=== PATIENT | male | born 1960 | race Caucasian/White ===

== ENCOUNTER 2017-01-08 20:06 | Emergency (ER) | payer BC ==
[2017-01-08 20:16] VITALS: BP 146/97
--- NOTE | 2017-01-08 21:12 | UC ---
Complaint Male HPI - HPI Summary HPI Summary: right flank pain began 3 days ago while in [place]--just got off plane and came directly to urgent care--urine has been darker than usual--but has not noticed any farrukh blood - History of Current Complaint Hx Obtained From: Patient Onset/Duration: Sudden Onset, Lasting Days - 3, Still Present Timing: Constant Severity Initially: Moderate Severity Currently: Moderate Location: Flank - right Character: Colicy, Constant Pressure Aggravating Factor(s): Nothing Alleviating Factor(s): Meds Associated Signs And Symptoms: Positive: Back Pain, Nausea <Shahla Renner - Last Filed: 01/11/17 07:38> <Idania Ward - Last Filed: 01/11/17 07:48> - History of Current Complaint Chief Complaint: UCBackPain Stated Complaint: LOWER BACK PAIN Time Seen by Provider: 01/08/17 21:03 - Allergies/Home Medications Allergies/Adverse Reactions: Allergies Allergy/AdvReac Type Severity Reaction Status Date / Time No Known Allergies Allergy Verified 01/10/17 13:08 Home Medications: Home Medications Prochlorperazine TAB* [Compazine Tab*] 5 mg PO Q6H PRN 01/08/17 [History Confirmed 01/11/17] PMH/Surg Hx/FS Hx/Imm Hx Previously Healthy: Yes - Surgical History Surgical History: Yes Surgery Procedure, Year, and Place: t&a - Family History Known Family History: Positive: None Family History: no issues reported in family history - Social History Occupation: Employed Full-time Lives: With Family Alcohol Use: Occasionally Substance Use Type: None Smoking Status (MU): Never Smoked Tobacco <Shahla Renner - Last Filed: 01/11/17 07:38> Review of Systems Constitutional: Negative Skin: Negative Eyes: Negative ENT: Negative Respiratory: Negative Cardiovascular: Negative Gastrointestinal: Abdominal Pain - and right flank, Nausea Genitourinary: Negative Motor: Negative Neurovascular: Negative Musculoskeletal: Negative Neurological: Negative Psychological: Negative All Other Systems Reviewed And Are Negative: Yes <Shahla Renner - Last Filed: 01/11/17 07:38> Physical Exam Triage Information Reviewed: Yes Appearance: Well-Appearing, No Pain Distress, Well-Nourished Vital Signs: Initial Vital Signs Temp 99.7 F 01/08/17 20:09 Pulse 86 01/08/17 20:09 Resp 18 01/08/17 20:09 BP 146/97 01/08/17 20:09 Pulse Ox 99 01/08/17 20:09 Vital Signs Reviewed: Yes Eye Exam: Normal Eyes: Positive: Conjunctiva Clear ENT Exam: Normal ENT: Positive: Normal ENT inspection, Hearing grossly normal. Negative: Nasal congestion, Nasal drainage, Trismus, Muffled/hoarse voice Dental Exam: Normal Neck exam: Normal Neck: Positive: Supple, Nontender, No Lymphadenopathy Respiratory Exam: Normal Respiratory: Positive: Chest non-tender, Lungs clear, Normal breath sounds, No respiratory distress, No accessory muscle use Cardiovascular Exam: Normal Cardiovascular: Positive: RRR, No Murmur, Pulses Normal, Brisk Capillary Refill Abdominal Exam: Normal Abdomen Description: Positive: Nontender, No Organomegaly, Soft, CVA Tenderness (R). Negative: CVA Tenderness (L) Bowel Sounds: Positive: Present Musculoskeletal Exam: Normal Musculoskeletal: Positive: Strength Intact, ROM Intact, No Edema Neurological Exam: Normal Neurological: Positive: Alert, Muscle Tone Normal Psychological Exam: Normal Psychological: Positive: Normal Response To Family Skin Exam: Normal <Shahla Renner - Last Filed: 01/11/17 07:38> Vital Signs: Initial Vital Signs Temp 99.7 F 01/08/17 20:09 Pulse 86 01/08/17 20:09 Resp 18 01/08/17 20:09 BP 146/97 01/08/17 20:09 Pulse Ox 99 01/08/17 20:09 <Idania Ward - Last Filed: 01/11/17 07:48> Diagnostics - Radiology No standard instances Xray Interpretation: Positive (See Comments) Radiology Interpretation Completed By: Radiologist - 6 mm stone right ureter with mild hydronephrosis <Shahla Renner - Last Filed: 01/11/17 07:38> Complaint Male Course/Dx - Course Course Of Treatment: continue pain med, add flomax, follow with [facility] in [place] - Differential Dx/Diagnosis Differential Diagnosis/HQI/PQRI: Pyelonephritis, Ureteral Calculi, Urinary Tract Infection Provider Diagnoses: 6 mm Right renal Calculi, High nblood pressure without dx of hypertension <Shahla Renner - Last Filed: 01/11/17 07:38> Discharge <Shahla Renner - Last Filed: 01/11/17 07:38> <Idania Ward - Last Filed: 01/11/17 07:48> - Discharge Plan Condition: Stable Disposition: HOME Prescriptions: HYDROcodone/ACETAMIN 5-325 MG* [Sutton 5-325 TAB*] 1 tab PO Q4H PRN #20 tab MDD 4 PRN Reason: pain Patient Education Materials: Tamsulosin (By mouth), Renal Colic (ED) Referrals: Murali Betancur MD [Medical Doctor] - 1 Day Attestation Statement User Type: Provider - I was available for consult. This patient was seen by the JOE. The patient was not presented to, seen by, or examined by me. -Fatoumata <Idania Ward - Last Filed: 01/11/17 07:48>
--- NOTE | 2017-01-08 21:43 | RAD ---
CLINICAL HISTORY: Right renal colic COMPARISON: None TECHNIQUE: Multiple contiguous axial CT scans were obtained of the abdomen and pelvis, without intravenous contrast enhancement. Coronal and sagittal multiplanar reformations are submitted for review. Oral contrast was not administered. FINDINGS: The study is limited by the lack of intravenous contrast. This limits evaluation of the solid organs and vasculature. LUNG BASES: The lung bases are clear. LIVER: The liver is normal in shape, size, contour, and attenuation. BILE DUCTS: There is no intrahepatic or extrahepatic biliary dilatation. GALLBLADDER: The gallbladder is collapsed and is not well evaluated. PANCREAS: The pancreas is normal, without mass or ductal dilatation. SPLEEN: Normal in size and appearance. UPPER GI TRACT: Evaluation of the gastrointestinal tract is limited by incomplete gastric distention. The upper GI tract is unremarkable. SMALL BOWEL AND MESENTERY: The small bowel is normal in contour, course, and caliber. There is no obstruction or dilatation. COLON: The colon is normal in contour, course, caliber. There is no pericolonic inflammatory change. There is a tubular, vermiform, hollow viscus that is blind ending, and originates from the cecum, consistent with a normal appendix. There is no periappendiceal inflammatory change. ADRENALS: Normal bilaterally. KIDNEYS: There is a 0.6 cm calculus of the right UPJ. There is mild perinephric stranding and pelviectasis. BLADDER: The bladder is collapsed and is not well evaluated PELVIC ORGANS: The prostate gland is normal. The seminal vesicles are symmetric. AORTA: The aorta is normal. IVC: Unremarkable LYMPH NODES: There is no lymphadenopathy by size criteria. ABDOMINAL WALL: There are bilateral fat-containing hernias BONES AND SOFT TISSUES: Degenerative changes are noted OTHER: None IMPRESSION: 0.6 CM CALCULUS OF THE RIGHT UPJ WITH MILD HYDRONEPHROSIS.
[2017-01-08] MEDS ORDERED: HYDROcodone/ACETAMIN 5-325 MG* 1 TAB PO ONE (21:59)
[2017-01-08] MEDS ORDERED: Tamsulosin CAP* 0.4 MG PO ONE (22:01)
== END 2017-01-08 22:00 | disposition home or self-care (01) ==
LOC: UCEAST 20:06
DX: N13.2 Hydronephrosis with renal and ureteral calculous obstruction (principal); R03.0 Elevated blood-pressure reading, without diagnosis of hypertension; R11.0 Nausea
CPT/HCPCS: 74176; 81003; 99212; G0463

== ENCOUNTER 2017-01-09 15:15 | Day surgery (SDC) | payer BC ==
--- NOTE | 2017-01-09 15:04 | HP ---
CC: Dr. Lucia DATE OF ADMISSION: 01/09/2017. HISTORY OF PRESENT ILLNESS: Mr. Cruz is a 56-year-old, white male who is admitted with a right ureteral calculus for cystoscopy and placement of a right ureteral stent, possible right ureteroscopy. Mr. Cruz was in [place] four days ago when he had symptoms of right renal colic. The pain was very severe and the [facility] physician came to see him, diagnosed him with renal colic, gave him several shots for pain and pain pills, and recommended that as soon as he gets back home to follow for possible renal colic. The patient continued to have on and off mild pains. Last night the pain became severe and he went to the [facility] around 9:00 p.m. He did not have any fever or chills. He had a noncontrast CT of the abdomen and pelvis which showed a 6 mm calculus at the right ureteropelvic junction. There were no other abnormalities noted and no other calculi seen. He was given pain medication and referred to our office for further management. He has been having still some episodes of pain, but they have been less severe. He did not have any gross hematuria or voiding symptoms. PAST HISTORY: Completely negative. No past history of any renal diseases or calculi. No history of any voiding problems. He has nocturia only once. No day frequency. He reports having good urinary stream and no feeling of incomplete bladder emptying. PAST MEDICAL HISTORY AND SYSTEM REVIEW: He is in excellent health. MEDICATIONS: He is on no chronic medications. ALLERGIES: He denies any allergies to medications. FAMILY HISTORY: Negative for renal calculi, negative for prostate carcinoma. PHYSICAL EXAMINATION GENERAL: Moderately overweight, otherwise healthy-looking white male. VITAL SIGNS: Blood pressure 150/100 (anxious), pulse 80, temperature 97.8. LUNGS: Clear. HEART: Regular and rhythmic, no murmurs. ABDOMEN: Soft. There is mild right CVA tenderness. EXTERNAL GENITALIA: He is circumcised. No penile lesions. Normal testes. No hernias. RECTAL: Exam shows a nonenlarged and nonsuspicious prostate. LABORATORY DATA: Urine analysis shows +3 blood, negative otherwise. Renal ultrasound done in the office today showed mild right hydronephrosis. The calculus could not be seen. He had bilateral small ureteral jets. IMPRESSION: 6 mm right ureteral calculus with on and off episodes of right renal colic over the last four days. PLAN: Cystoscopy and placement of a right ureteral stent, in preparation for definitive treatment of the stone. If the calculus is noted to have dropped into the distal half of the ureter, then right ureteroscopy will be performed. I discussed the above plans in detail with the patient. All his questions were answered. [id number]/[facility]PS #: [id number] G[facility]
[2017-01-09] MEDS ORDERED: cefTRIAXone(*) 2 GM ADDV.VIAL IVPB ONE (15:37)
[2017-01-09] MEDS ORDERED: Buffered Lidocaine 0.9% SYRIN* 5 ML/SYR SYRINGE ONE (15:37)
[2017-01-09] MEDS ORDERED: Buffered Lidocaine 0.9% SYRIN* 5 ML/SYR SYRINGE INTRADERM ONE (16:14)
[2017-01-09] MEDS ORDERED: PROCHLORPERAZINE INJ 5 MG/ML 2 ML VIAL IV PRN (16:17)
[2017-01-09] MEDS ORDERED: Ondansetron INJ* 2 MG/ML VIAL IV PRN (16:17)
[2017-01-09] MEDS ORDERED: fentaNYL* 50 MCG/ML 2 ML VIAL (100 MCG VIAL) IV PRN (16:17)
[2017-01-09] MEDS ORDERED: Acetaminophen TAB* 325 MG PO PRN (16:17)
[2017-01-09] MEDS ORDERED: DiMENhydriNATE IV* 50 MG/ML VIAL IV PUSH PRN (16:17)
[2017-01-09] MEDS ORDERED: HYDROcodone/ACETAMIN 5-325 MG* 1 TAB PO PRN (16:17)
[2017-01-09] MEDS ORDERED: Iohexol 180 (CONTRAST) 10 ML SDV IV ONE (16:36)
[2017-01-09] MEDS ORDERED: fentaNYL* 50 MCG/ML 2 ML VIAL (100 MCG VIAL) ONE (17:03)
[2017-01-09] MEDS ORDERED: Midazolam* 1 MG/ML 5 ML VIAL (5 MG) ONE (17:03)
[2017-01-09] MEDS ORDERED: Lidocaine 2% PF * 5 ML VIAL ONE (17:46)
[2017-01-09] MEDS ORDERED: Propofol* 10 MG/ML 20 ML BTL IV PUSH ONE (17:46)
[2017-01-09] MEDS ORDERED: Dexamethasone IV* 4 MG/ML 1 ML (4 MG) ONE (17:46)
[2017-01-09] MEDS ORDERED: Ondansetron INJ* 2 MG/ML VIAL ONE (17:46)
[2017-01-09] MEDS ORDERED: Famotidine IV* 10 MG/ML 2 ML (20 mg) ONE (17:46)
[2017-01-09] MEDS ORDERED: Ketorolac INJ* 30 MG/ML 1 ML VIAL ONE (17:46)
--- NOTE | 2017-01-09 18:03 | RAD ---
INDICATION: Cystogram with stent insertion COMPARISONS: CT dated January 08, 2017 TECHNIQUE: Fluoroscopy was provided for a retrograde pyelogram and stent placement. Total fluoroscopy time is: 12 seconds FINDINGS: Spot images demonstrate a ureteral stent IMPRESSION: FLUOROSCOPY WAS PROVIDED FOR A RETROGRADE PYELOGRAM AND STENT PLACEMENT CPT II Codes: 6045F
[2017-01-09 19:49] VITALS: BP 137/81
--- NOTE | 2017-01-09 20:14 | RAD ---
HISTORY: Renal calculi, postop COMPARISONS: CT dated January 08, 2017 VIEWS: Frontal views of the abdomen. FINDINGS: BOWEL: There is a nonspecific bowel gas pattern, with nondilated small bowel gas noted. CALCULI: There is a calculus overlying the right hemiabdomen corresponding to the UPJ stone noted on the previous examination. A right ureteral stent is noted. This does not lie along the expected course of the ureter and may be within accessory/duplicated collecting system. BONES AND SOFT TISSUES: Mild degenerative changes are noted. OTHER FINDINGS: The lung bases are clear. There is no subphrenic gas. IMPRESSION: AGAIN NOTED IS A RIGHT SIDED FACTORS CORRESPONDING TO THE UPJ STONE NOTED ON THE PREVIOUS EXAMINATION. THE URETERAL STENT DOES NOT LIE ALONG THE EXPECTED COURSE OF THE URETER, BASED ON THE POSITION OF THE CALCULUS, AND MAY BE WITHIN A DUPLICATED RENAL COLLECTING SYSTEM. PRELIMINARY FINDINGS WERE DISCUSSED WITH DR. BANKS AT APPROXIMATELY 8:11 PM ON JANUARY 09, 2017.
--- NOTE | 2017-01-10 14:01 | OP ---
CC: Dr. Lucia* DATE OF OPERATION: 01/09/17 - [facility] DATE OF : 64 SURGEON: Murali Betancur MD ANESTHESIOLOGIST: Kandis Edmonds MD ANESTHESIA: Spinal. PRE-OP DIAGNOSIS: Proximal right ureteral calculus. POST-OP DIAGNOSIS: Proximal right ureteral calculus. OPERATIVE PROCEDURE: 1. Cystoscopy. 2. Right retrograde pyelography and placement of right ureteral stent (6-New Zealander ). INDICATIONS: Mr. Cruz is a 56-year-old white male, who has been having recurrent episodes of right renal colic for the last 4 or [address] of the abdomen and pelvis done yesterday showed 6-mm calculus at the right ureteropelvic junction. Because of the above history and the recurrent episodes of pain, the above procedure was advised and accepted. PATHOLOGY AT CYSTOSCOPY: The penile and bulbar urethrae looked normal. The prostatic urethra measured about 2.5 cm in length and there was moderate obstruction by a prominent median lobe and an elevated bladder neck. Examination of the bladder showed prominence of the submucosal vessels in the area of the bladder neck. The ureteral orifices looked normal. A single orifice was noted bilaterally. The bladder wall looked normal and there were no suspicious bladder lesions seen. At fluoroscopy, a faint calcification consistent with a 6-mm calculus was noted at the ureteropelvic junction. DESCRIPTION OF PROCEDURE: After successful spinal anesthesia, the patient was placed in the lithotomy position and was prepped and draped in the usual manner. Cystoscopy was performed. The bladder was inspected and above findings were noted. A flexible-tip guidewire was then introduced into the right orifice and positioned in the area of the renal pelvis. Retrograde pyelography was then performed. There was no dilatation of the collecting system. A size 6-[place] Ze[place]ander stent was then placed with the proximal end coiling in the collecting system and the distal end coiling inside the bladder. There was good drainage of contrast from the kidney and no extravasation. The patient tolerated the procedure well and left the operating room in good condition. The plan is to obtain a KUB before the discharge. If the calculus is confirmed to be radiopaque, the patient will be scheduled for shock wave lithotripsy at a later date. [id number]/[facility] #: [id number] [facility]
== END 2017-01-09 19:30 | disposition home or self-care (01) ==
LOC: OR 15:15
PROVIDERS: ATTEND Urology
DX: N20.0 Calculus of kidney (principal); Z68.35 Body mass index [BMI] 35.0-35.9, adult; N40.1 Benign prostatic hyperplasia with lower urinary tract symptoms
CPT/HCPCS: 36415; 74000; 74420; 86803; C1876; J0696; J1100; J1885; J2250; J2405; J2704; J3010

== ENCOUNTER 2017-01-11 07:24 | Day surgery (SDC) | payer BC ==
--- NOTE | 2017-01-10 19:20 | HP ---
HISTORY AND PHYSICAL: DATE OF PLANNED ADMISSION AND SURGERY: 01/11/17 HISTORY OF PRESENT ILLNESS: Mr. Cruz is a 56-year-old white male who is admitted with a right ureteral calculus, status post placement of right ureteral stent for cystoscopy and repositioning of right ureteral stent. Please refer to my history and physical for the patient's admission dated . The patient had placement of a right ureteral stent for a 6-mm calculus at the right ureteropelvic junction on 01/09/17. After placement of the ureteral stent , a KUB was done in preparation for definitive treatment of the stone. The KUB showed that the stent is in good position; however, a 6- to 7-mm calcification consistent with the stone seen on the CT scan was noted superior and medial to the stent indicating that the patient has a duplicated collecting system with the calculus located at the ureteropelvic junction of the upper pole moiety and the stent placed in the lower pole moiety. This duplication was not noted on the CT or at at the time of the fluoroscopy. The calculus was not also clearly seen at the time of the fluoroscopy and after placement of the stent. Following the placement of the stent, the patient has been pain-free. Ultrasound was done in the office showed a duplicated system, but did not show the stone. KUB again showed the same finding of the KUB done postoperatively. Because of the size of the stone and its location and likelihood that the patient will have another episode of renal colic, the patient is admitted for cystoscopy, right ureteral stent exchange, and repositioning of the stent in the upper pole moiety. This will be done in preparation for shock wave lithotripsy as definitive treatment of the stone. There has not been any change in the patient's history or physical since his recent admission. [id number]/[facility] #: [id number] [facility]
[~2017-01-11 07:24] MED LIST: Dexamethasone IV* 4 MG/ML 1 ML (4 MG) IV SLOW PU ONE; Famotidine IV* 10 MG/ML 2 ML (20 mg) IV ONE
[2017-01-11] MEDS ORDERED: Famotidine IV* 10 MG/ML 2 ML (20 mg) ONE (07:25)
[2017-01-11] MEDS ORDERED: cefTRIAXone(*) 2 GM ADDV.VIAL IVPB ONE (07:26)
[2017-01-11] MEDS ORDERED: Buffered Lidocaine 0.9% SYRIN* 5 ML/SYR SYRINGE ONE (07:26)
[2017-01-11] MEDS ORDERED: Dexamethasone IV* 4 MG/ML 1 ML (4 MG) ONE (07:26)
[2017-01-11] MEDS: Buffered Lidocaine 0.9% SYRIN* 5 ML/SYR SYRINGE INTRADERM ONE ×2 (07:49→07:51)
[2017-01-11] MEDS ORDERED: Iohexol 180 (CONTRAST) 10 ML SDV IV ONE (08:24)
[2017-01-11] MEDS ORDERED: fentaNYL* 50 MCG/ML 2 ML VIAL (100 MCG VIAL) ONE (08:31)
[2017-01-11] MEDS ORDERED: Chloroprocaine 2%* 20 ML VIAL ONE (08:31)
[2017-01-11] MEDS ORDERED: Midazolam* 1 MG/ML 2 ML VIAL (2 MG) ONE ×2 (08:31)
[2017-01-11] MEDS ORDERED: Propofol* 10 MG/ML 20 ML BTL IV PUSH ONE (08:34)
[2017-01-11] MEDS ORDERED: Ondansetron INJ* 2 MG/ML VIAL IV PRN (10:06)
[2017-01-11] MEDS ORDERED: Ketorolac INJ* 30 MG/ML 1 ML VIAL IV PRN (10:06)
[2017-01-11] MEDS ORDERED: fentaNYL* 50 MCG/ML 2 ML VIAL (100 MCG VIAL) IV PRN (10:06)
--- NOTE | 2017-01-11 10:32 | RAD ---
INDICATION: Right ureteral stent exchange. COMPARISON: Comparison is made with a prior KUB study from January 10, 2017. TECHNIQUE: 18 seconds of intermittent fluoroscopic guidance were provided and 9 spot films of the abdomen were centered on the right side. FINDINGS: There is partial opacification of the right renal collecting system. Subsequently there is placement of a double-J stent catheter on the right side which demonstrates normal course. The catheter appears to project adjacent to the calculus noted previously to be at the right ureteropelvic junction. IMPRESSION: INTRAOPERATIVE CONTROL FILMS. CPT II Codes: 6045F
[2017-01-11 11:24] VITALS: BP 145/98
--- NOTE | 2017-01-12 09:14 | OP ---
CC: Dr. Lucia* DATE OF OPERATION: 01/11/17 - [facility] DATE OF : 64 SURGEON: Murali Betancur MD ANESTHESIOLOGIST: Dr. Martin Patterosn. ANESTHESIA: Spinal. PRE-OP DIAGNOSES: 1. Partial duplication of right collecting system. 2. A 7 mm calculus at the right ureteropelvic junction of upper pole moiety. 3. Status post placement of ureteral stent in the lower pole moiety. POST-OP DIAGNOSES: 1. Partial duplication of right collecting system. 2. A 7 mm calculus at the right ureteropelvic junction of upper pole moiety. 3. Status post placement of ureteral stent in the lower pole moiety. 4. 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 5. Benign prostatic hyperplasia. OPERATIVE PROCEDURE: 1. Cystoscopy. 2. Removal of ureteral stent in lower pole moiety. 3. Right ureteroscopy. 4. Right retrograde pyelography. 5. Placement of ureteral stent in upper pole moiety (6-Argentine). INDICATION FOR PROCEDURE: Mr. Cruz is a 56-year-old white male who presented with recurrent episodes of right renal colic. Noncontrast CT of the abdomen and pelvis 3 days ago showed a 6 to 7 mm calculus at the right ureteropelvic junction. He had cystoscopy and placement of a right ureteral stent 2 days ago. At fluoroscopy, the calculus could not be well visualized and the stent was in good position. Postoperative KUB showed the radiopaque calculus which was located medial and superior to the proximal end of the stent indicating the partial duplication with the calculus in the upper pole moiety. This was rechecked with an ultrasound and the above findings were confirmed. The ultrasound showed partial right hydronephrosis of the upper pole moiety. Because of the above history and the plan to perform shockwave lithotripsy in about 10 days and because of the persistent obstruction, the patient is admitted for the above procedure, for repositioning of the stent in the upper pole moiety. PATHOLOGY AT CYSTOSCOPY: The penile and bulbar urethrae looked normal. The prostatic urethra measured about 2.5 to 3 cm in length and there was elevation of the bladder neck with partial enlargement of the medial lobe of the prostate. Examination of the bladder showed the stent coming from the right orifice. Careful inspection of the trigone showed that there was a single orifice on each side. Upon right ureteroscopy, there was a partial duplication of the collecting system with the 2 ureters meeting at the junction between the mid and distal third of the ureter. Following placement of the guidewire in the upper pole moiety, concentrated urine and hydronephrotic drip were noted. There was mild- to-moderate right hydronephrosis of the upper pole moiety. DESCRIPTION OF PROCEDURE: After successful spinal anesthesia, the patient was placed in the lithotomy position and was prepped and draped in the usual manner. Cystoscopy was performed. The findings and the prostatic urethra were noted. The bladder was then carefully inspected in particular concentrating on the trigone for possible double orifice. A single orifice was noted on each side with the stent coming from the right orifice. The stent was removed over a guidewire. A size 6.5 semi-rigid ureteroscope was then introduced under direct vision and introduced into the right orifice. Ureteroscopy was then carefully performed and the site of the duplication was identified and documented with pictures. The guidewire was then removed and was fed into the ureteroscope. After several attempts, the guidewire was successfully introduced into the ureter of the upper pole moiety. Ureteroscopy was then performed in the upper pole ureter and the stone was still fairly high and it was felt that laser lithotripsy will not be safe at that level. The ureteroscope was then removed keeping the guidewire in place in the upper pole moiety. Retrograde pyelography was then performed. A size 6-Argentine stent was then placed with the proximal end coiling in the upper pole moiety collecting system and the distal end coiling inside the bladder. There was good drainage of contrast from the kidney and no extravasation. The patient tolerated the procedure well and left the operating room in good condition. The plan is to bring the patient back in about 12 days for shockwave lithotripsy of the renal calculus followed by stent removal. [id number]/[facility] #: [id number] [facility]
== END 2017-01-11 11:36 | disposition home or self-care (01) ==
LOC: OR 07:24
PROVIDERS: ATTEND Urology
DX: N13.2 Hydronephrosis with renal and ureteral calculous obstruction (principal); Q62.5 Duplication of ureter; N40.0 Benign prostatic hyperplasia without lower urinary tract symptoms; Z68.34 Body mass index [BMI] 34.0-34.9, adult
CPT/HCPCS: 62323; 74420; C1876; J0696; J1100; J2250; J2400; J2704; J3010

== ENCOUNTER 2017-01-21 09:37 | Day surgery (SDC) | payer BC ==
--- NOTE | 2017-01-18 08:59 | HP ---
HISTORY AND PHYSICAL: DATE OF PLANNED ADMISSION AND SURGERY: 01/21/17 HISTORY OF PRESENT ILLNESS: Mr. Cruz is a 56-year-old white male who is admitted with a right renal calculus, status post placement of right ureteral stent, for shockwave lithotripsy followed by possible cystoscopy and removal of the right ureteral stent. Please refer to my detailed history and physical for his admissions on 01/09/17 and 01/11/17. Mr. Cruz is a healthy 56-year-old who presented about two weeks ago with symptoms of right renal colic and was found to have a 7 mm calculus at the right ureteropelvic junction. On 01/09/17, he had placement of a right ureteral stent. KUB done postoperatively showed the calculus to be superior and medial to the stent, suggestive that the patient had a partial duplication with the stone in the ureter of the upper pole moiety. The patient was taken to the operating room on 01/11/17 and underwent a cystoscopy and right ureteroscopy with repositioning of the right ureteral stent into the upper pole moiety. He did very well postoperatively. Postoperative KUB showed the stent in good position with a 7 mm calculus in the area of the right ureteropelvic junction. The patient has been doing fairly well. There has not been any change in his medical condition or in his medications. His urinalysis showed microscopic hematuria, was negative otherwise. PHYSICAL EXAMINATION GENERAL: He is moderately overweight and healthy looking. VITAL SIGNS: Blood pressure 126/80, pulse of 66. EXAM OF THE HEART AND LUNGS: Normal. He has no CVA tenderness. ABDOMEN: Abdominal exam is normal. 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 PLAN: Plan is for shockwave lithotripsy of the right renal calculus. If there is good fragmentation of the stone, the plan is to proceed with a cystoscopy and removal of the right ureteral stent. I discussed the above plans in detail with the patient. Some of the potential complications including hematuria, infection, and possible need for a ureteroscopy if the stone fragments get stuck in the ureter. All his questions were answered. [id number]/[facility] #: [id number] [facility]
[~2017-01-21 09:37] MED LIST changes: +Buffered Lidocaine 0.9% SYRIN* 5 ML/SYR SYRINGE INTRADERM ONE
[2017-01-21] MEDS ORDERED: Famotidine IV* 10 MG/ML 2 ML (20 mg) ONE (09:55)
[2017-01-21] MEDS ORDERED: Dexamethasone IV* 4 MG/ML 1 ML (4 MG) ONE (09:55)
[2017-01-21] MEDS ORDERED: cefTRIAXone(*) 2 GM ADDV.VIAL IVPB ONE (09:55)
[2017-01-21] MEDS ORDERED: Buffered Lidocaine 0.9% SYRIN* 5 ML/SYR SYRINGE ONE (09:55)
--- NOTE | 2017-01-21 10:05 | RAD ---
Indication: RIGHT side kidney stone. Preoperative for lithotripsy today. Comparison: January 10, 2017 abdomen radiograph and January 08, 2017 CT. Technique: Supine view of the abdomen. Report: Unremarkable bowel gas pattern. Moderately large volume of stool in the colon without significant rectal distension. Typical partial obscuration of the renal fossa and course of the ureters by bowel contents RIGHT ureteral stent in place. 0.6 cm stone at level of the RIGHT renal pelvis/ureteropelvic junction without gross change in size. No additional urolithiasis visualized. RIGHT pelvic phlebolith noted. Unremarkable soft tissue contours. IMPRESSION: No significant change in size of the RIGHT renal pelvis/ureteropelvic junction stone.
[2017-01-21] MEDS ORDERED: Ondansetron INJ* 2 MG/ML VIAL IV PRN (12:14)
[2017-01-21] MEDS ORDERED: fentaNYL* 50 MCG/ML 2 ML VIAL (100 MCG VIAL) IV PRN (12:14)
[2017-01-21] MEDS ORDERED: oxyCODONE/Acetamin 5/325 MG* TAB PO PRN (12:14)
[2017-01-21] MEDS ORDERED: Ketorolac INJ* 30 MG/ML 1 ML VIAL ONE (12:17)
[2017-01-21] MEDS ORDERED: Ondansetron INJ* 2 MG/ML VIAL ONE (12:17)
[2017-01-21] MEDS ORDERED: Propofol* 10 MG/ML 20 ML BTL IV PUSH ONE (12:17)
[2017-01-21] MEDS ORDERED: Midazolam* 1 MG/ML 5 ML VIAL (5 MG) ONE (12:17)
[2017-01-21] MEDS ORDERED: Chloroprocaine 2%* 20 ML VIAL ONE (12:17)
[2017-01-21 14:59] VITALS: BP 123/87
--- NOTE | 2017-01-22 14:08 | OP ---
DATE OF OPERATION: 01/21/17 [facility] DATE OF : 64 SURGEON: Murali Betancur MD ANESTHESIOLOGIST: Dr. Snowden. ANESTHESIA: Spinal. PRE-OP DIAGNOSES: 1. 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 Status post placement, right ureteral stent. POST-OP DIAGNOSES: 1. 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 Status post placement, right ureteral stent. OPERATIVE PROCEDURE: Shockwave lithotripsy of right renal calculus, upper pole moiety. INDICATION FOR PROCEDURE: Mr. Cruz is a 56-year-old white male who had placement of a right ureteral stent for an obstructing 6 to 7 mm calculus at the ureteropelvic junction of the upper pole moiety of a duplicated collecting system about 10 days ago. Postoperative KUB showed the stone to be at the same level. He is now brought in for shockwave lithotripsy. PATHOLOGY: Preoperative imaging showed the right stent to be in good position and a 6 to 7 mm radiopaque calculus at the level of the ureteropelvic junction. No other abnormal calcifications were noted. DESCRIPTION OF PROCEDURE: After successful spinal anesthesia, the patient was placed in the supine position on the shockwave lithotripsy table. The right renal calculus was visualized in both of the PA and the oblique x-ray views and the position of the table and of the generator were adjusted to have the stone in the focus of the shockwave. A total of 2,400 shocks were then delivered at the rate of 90 shocks per minute. The proper positioning and fragmentation of the stone were monitored periodically. At the completion of the treatment, there seem to be good fragmentation of the stone. Because of the expected ureteral wall edema from the shockwave lithotripsy, it was decided not to remove the ureteral stent at this time. The patient tolerated the procedure well and left the operating room in good condition. The plan is to see the patient in the office next week. The KUB will be obtained and most likely the stent will be removed in the office. [id number]/[facility] #: [id number] MTDD
== END 2017-01-21 15:00 | disposition home or self-care (01) ==
LOC: OR 09:37
PROVIDERS: ATTEND Urology
DX: N20.0 Calculus of kidney (principal); Z96.0 Presence of urogenital implants; Q62.5 Duplication of ureter; Q63.0 Accessory kidney
CPT/HCPCS: 36415; 74000; 85610; 85730; J0696; J1100; J1885; J2250; J2400; J2405; J2704

== ENCOUNTER 2017-03-29 07:22 | Day surgery (SDC) | payer BC ==
--- NOTE | 2017-03-25 16:11 | HP ---
HISTORY AND PHYSICAL: DATE OF PLANNED ADMISSION AND SURGERY: 03/29/17 HISTORY OF PRESENT ILLNESS: Mr. Cruz is a 56-year-old white male, who is admitted with distal right ureteral calculi for cystoscopy, right ureteroscopy, laser lithotripsy, and right ureteral stent insertion. Mr. Cruz presented about 3 months ago with symptoms of right renal colic. He was noted to have a 7- to 8-mm calculus at the right ureteropelvic junction. At that time, it was not diagnosed that he had a duplicated right collecting system and the stone was at the ureteropelvic junction of the upper pole moiety. He had urgent placement of a right ureteral stent on 01/09/17. At that procedure the calculus was not seen at fluoroscopy, however KUB following the procedure showed the stent to be in a lower pole moiety. The patient was taken back to the operating room 2 days later and had a right ureteroscopy and repositioning of the ureteral stent in the upper pole moiety draining his partially obstructed upper pole moiety of his right kidney. On 01/21/17, he had shock wave lithotripsy of the right ureteral calculus and the stent was removed 2 weeks later. He did very well postoperatively; however , he never passed any stone fragments. KUB showed 2 stone fragments measuring 3 to 4 mm each in the distal right ureter. They were observed and 6 weeks later , the stones were still in the same position. They have not been causing any hydronephrosis or pain. The patient is planning to leave the country on a professional trip. Because of the length of time the stones have been in the same location, and the planned overseas trip, stones extraction was recommended. PAST MEDICAL HISTORY AND SYSTEM REVIEW: He is in excellent health. He denies any cardiac or pulmonary diseases or symptoms. MEDICATIONS: He is on no chronic medications. ALLERGIES: He denies any allergies to medications. PHYSICAL EXAMINATION GENERAL: Pleasant, healthy, moderately overweight, otherwise healthy looking male. VITAL SIGNS: Blood pressure 130/80; pulse of 72, regular. LUNGS: Clear. HEART: Regular and rhythmic. No murmurs. ABDOMEN: Soft without any masses and no tenderness. IMPRESSION: 1. 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 2. Status post shock wave lithotripsy of a right renal calculus with 2 fragments measuring 3 and 4 mm in the distal right ureter. PLAN: For cystoscopy, right ureteroscopy, laser lithotripsy, and right ureteral stent placement. I discussed the above plans with the patient, all his questions were answered. [id number]/[facility] #: [id number] GONZALO
[~2017-03-29 07:22] MED LIST changes: -Dexamethasone IV* 4 MG/ML 1 ML (4 MG) IV SLOW PU ONE
[2017-03-29] MEDS ORDERED: cefTRIAXone(*) 2 GM ADDV.VIAL IVPB ONE (07:30)
[2017-03-29] MEDS ORDERED: Famotidine IV* 10 MG/ML 2 ML (20 mg) ONE (07:30)
[2017-03-29] MEDS ORDERED: Buffered Lidocaine 0.9% SYRIN* 5 ML/SYR SYRINGE ONE (07:30)
[2017-03-29] MEDS ORDERED: Iohexol 180 (CONTRAST) 10 ML SDV IV ONE (07:58)
[2017-03-29] MEDS ORDERED: Chloroprocaine 2%* 20 ML VIAL ONE (08:28)
[2017-03-29] MEDS ORDERED: Propofol* 10 MG/ML 20 ML BTL IV PUSH ONE ×2 (08:28→10:04)
[2017-03-29] MEDS ORDERED: Ondansetron INJ* 2 MG/ML VIAL ONE (08:28)
[2017-03-29] MEDS ORDERED: Dexamethasone IV* 4 MG/ML 1 ML (4 MG) ONE (08:28)
[2017-03-29] MEDS ORDERED: Lidocaine 2% PF * 5 ML VIAL ONE (08:28)
[2017-03-29] MEDS ORDERED: Ketorolac INJ* 30 MG/ML 1 ML VIAL ONE (08:28)
[2017-03-29] MEDS ORDERED: Midazolam* 1 MG/ML 5 ML VIAL (5 MG) ONE (08:29)
[2017-03-29] MEDS ORDERED: fentaNYL* 50 MCG/ML 2 ML VIAL (100 MCG VIAL) ONE (08:29)
[2017-03-29] MEDS ORDERED: KETAMINE HCL* 50 MG/ML 10 ML VIAL ONE (08:29)
[2017-03-29] MEDS ORDERED: Midazolam* 1 MG/ML 2 ML VIAL (2 MG) ONE (09:15)
[2017-03-29] MEDS ORDERED: oxyCODONE/Acetamin 5/325 MG* TAB PO PRN (10:28)
[2017-03-29] MEDS ORDERED: Ondansetron INJ* 2 MG/ML VIAL IV PRN (10:28)
[2017-03-29] MEDS ORDERED: fentaNYL* 50 MCG/ML 2 ML VIAL (100 MCG VIAL) IV PRN (10:28)
--- NOTE | 2017-03-29 10:58 | RAD ---
INDICATION: Right ureteral stent insertion. COMPARISON: Comparison is made with a prior CT of the abdomen and pelvis from January 08, 2017. TECHNIQUE: 9 seconds of intermittent fluoroscopic guidance were provided and 4 spot films of the abdomen were centered on the right side. FINDINGS: There is partial opacification of the right renal collecting system. Subsequently there is placement of a double-J stent catheter on the right side. IMPRESSION: INTRAOPERATIVE CONTROL FILMS. CPT II Codes: 6045F
[2017-03-29 11:30] VITALS: BP 120/90
--- NOTE | 2017-03-29 21:33 | OP ---
OPERATIVE REPORT: DATE OF OPERATION: 03/29/17 DATE OF : 64 SURGEON: Murali Betancur MD. ANESTHESIOLOGIST: Dr. Braulio Kearney. ANESTHESIA: Spinal. PRE-OP DIAGNOSIS: Distal right ureteral calculi. POST-OP DIAGNOSIS: Distal right ureteral calculi. OPERATIVE PROCEDURE: 1. Cystoscopy. 2. Right ureteroscopy. 3. Laser lithotripsy and basketing of right ureteral calculi (4 mm each). 4. Right retrograde pyelography and placement of right ureteral stent (6-Lithuanian ). INDICATION FOR PROCEDURE: Mr. Cruz is a 56-year-old white male who had a proximal right ureteral calculus that was treated with a ureteral stent and then with shockwave lithotripsy. The stent was removed about 6 weeks ago. He has been doing well except that he did not pass any stone fragments, and KUB showed 2 stone fragments, measuring 3 to 4 mm each located in the distal right ureter. He was having mild on and off right flank pain. Because of the above history and finding and the duration the stones have been in the distal ureter, the above procedure was advised and accepted. PATHOLOGY AT CYSTOSCOPY: The penile and bulbar urethrae looked normal. There was moderate prostate enlargement and obstruction and elevation of the bladder neck. Examination of the bladder showed normal mucosa. There was no suspicious bladder lesions seen. The urethral orifices looked normal. There were 2 impacted right distal ureteral calculi located at the level of the intramural portion of the ureter. The 2 stone fragments measured about 4 mm each. They had the gross appearance of calcium oxalate stones. There was mild dilatation of the ureter proximal to the stones. Duplicated ureters were noted both joining at the level of the junction of the middle and the distal third of the ureter. DESCRIPTION OF PROCEDURE: After successful spinal anesthesia, the patient was placed in the lithotomy position and was prepped and draped for a cystoscopy. Cystoscopy was performed. The bladder was carefully inspected and the above findings were noted. A flexible tip guidewire was then introduced into the right orifice. After some manipulation, the wire was successfully introduced past the stones and positioned in the upper pole moiety of the right kidney. A 6.5 semirigid ureteroscope was then introduced inside the bladder. A flexible tip basket was introduced through the port of the ureteroscope, and the flexible tip was then introduced into the right ureteral orifice and used as a guide to pass the scope into the right ureter with minimal trauma. The 2 stone fragments were visualized. They were then pushed just proximal to the intramural portion of the ureter. The stone basket was then deployed proximal to the stones to avoid their proximal migration. A 550 micron laser was then introduced through the other port of the ureteroscope and the stone fragments were broken. The fragments were then extracted using the basket. At the completion of the procedure, the ureteral wall looked intact and no injury was noted. There were no residual stone fragments left. Retrograde pyelography was then performed demonstrating the upper pole moiety of the right kidney. A size 6-Lithuanian stent was then placed with the proximal end coiling in the renal pelvis of the upper pole moiety and the distal end coiling inside the bladder. A size 16-Lithuanian Patel catheter was then passed inside the bladder. The patient tolerated the procedure well and left the operating room in good condition. There were no complications and the specimen were stone fragments of right ureter. The plan is to keep the stent in place for about 10 days, it will be removed in the office under local anesthesia. [id number]/[facility] #: [id number] GONZALO
== END 2017-03-29 11:44 | disposition home or self-care (01) ==
LOC: OR 07:22
PROVIDERS: ATTEND Urology
DX: N20.1 Calculus of ureter (principal); Q62.5 Duplication of ureter
CPT/HCPCS: 74420; 82365; 88300; C1876; J0696; J1100; J1885; J2250; J2400; J2405; J2704; J3010